=== PATIENT | female | born 1985 | race American Indian/Alaskan Native ===

== ENCOUNTER 2018-11-17 07:37 | Emergency (ER) | payer OTHER ==
[2018-11-17] MEDS ORDERED: ZOFRAN IV ONE (07:47)
[2018-11-17] MEDS ORDERED: NACL 0.9% 1000 ML 1,000 ML IV ONE (07:47)
[2018-11-17] MEDS ORDERED: TORADOL IV ONE (07:47)
[2018-11-17] MEDS ORDERED: MORPHINE IV ONE (07:47)
[2018-11-17] MEDS ORDERED: TORADOL ONE (07:49)
[2018-11-17] MEDS ORDERED: MORPHINE ONE (07:50)
[2018-11-17] MEDS ORDERED: ZOFRAN ONE (07:50)
--- NOTE | 2018-11-17 07:59 | Emergency Department Report ---
ED Abdominal Pain HPI - General Chief Complaint: Abdominal Pain Stated Complaint: FALL Time Seen by Provider: 11/17/18 07:46 Source: patient Mode of arrival: Stretcher Limitations: No Limitations - History of Present Illness Initial Comments: Mrs. Blue is a 33-year-old female with history of gallstones who presents with severe right upper quadrant pain. Pain is currently 11 out of 10. Became returned on yesterday. She was diagnosed with gallstones 2 weeks ago. Today she has severe pain. SHe fell to floor. On the way to the ground she struck her face on a porcelain sink. No LOC. 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 She was brought emergently from ultrasound to our emergency department for evaluation. 11 out of 10 dull pain without radiation. She felt warm to touch according to her colleagues. Several years ago, she was given a recommendation by physician to have cholecystectomy. She was afraid of the surgery. A close relative as a complication of cholecystectomy. She was very afraid of possible complication. She ate pizza yesterday. She has two superficial facial abrasions. Tetanus is UTD. MD Complaint: abdominal pain -: Gradual, days(s) (1) Location: RUQ Radiation: none Migration to: no migration Severity: severe Severity scale (0 -10): 10 Quality: aching Consistency: constant Improves With: nothing Worsens With: other (palpation) Associated Symptoms: nausea - Related Data Previous Rx's Medication Instructions Recorded Last Taken Type Promethazine [Phenergan] 25 mg PO Q6HR PRN #10 tab 11/17/18 Unknown Rx oxyCODONE /ACETAMINOPHEN [Percocet 1 tab PO Q6HR PRN #20 tablet 11/17/18 Unknown Rx 5/325] Allergies Allergy/AdvReac Type Severity Reaction Status Date / Time pseudoephedrine Allergy Unknown [facility] Systems ROS: Stated complaint: FALL Other details as noted in HPI Comment: All other systems reviewed and negative Constitutional: denies: fever Gastrointestinal: abdominal pain, nausea ED Past Medical Hx - Past Medical History Previous Medical History?: Yes Additional medical history: Gallstones - Surgical History Past Surgical History?: Yes Additional Surgical History: C section x 3 - Family History Family history: hypertension - Social History Smoking Status: Never Smoker Substance Use Type: None - Medications Home Medications: Home Medications Medication Instructions Recorded Confirmed Last Taken Type Promethazine [Phenergan] 25 mg PO Q6HR PRN #10 tab 11/17/18 Unknown Rx oxyCODONE /ACETAMINOPHEN [Percocet 1 tab PO Q6HR PRN #20 tablet 11/17/18 Unknown Rx 5/325] ED Physical Exam - General Limitations: No Limitations General appearance: alert, in no apparent distress, other (appears in pain but nontoxic) - Head Head exam: Present: normocephalic, other (no hematoma or contusion, 2 superficial lacerations at right cheek and right temporal region 2 cm in length) - Eye Eye exam: Present: normal appearance - ENT ENT exam: Present: mucous membranes moist - Neck Neck exam: Present: normal inspection, full ROM. Absent: tenderness, meningismus - Respiratory Respiratory exam: Present: normal lung sounds bilaterally. Absent: respiratory distress, wheezes, rales, rhonchi - Cardiovascular Cardiovascular Exam: Present: normal rhythm, tachycardia, normal heart sounds. Absent: systolic murmur, diastolic murmur, rubs, gallop - GI/Abdominal GI/Abdominal exam: Present: soft, normal bowel sounds. Absent: distended, tenderness, guarding, rebound - Extremities Exam Extremities exam: Present: normal inspection - Back Exam Back exam: Present: normal inspection - Neurological Exam Neurological exam: Present: alert, oriented X3 - Psychiatric Psychiatric exam: Present: normal affect, normal mood - Skin Skin exam: Present: warm, dry, intact, normal color. Absent: rash ED Course Vital Signs 11/17/18 11/17/18 07:49 09:06 Temperature 98.7 F Pulse Rate 125 H 98 H Respiratory 16 16 Rate Blood Pressure 156/82 Blood Pressure 116/76 [Right] O2 Sat by Pulse 100 98 Oximetry - Laceration /Wound Repair Right Cheek Wound Location: face Wound Length (cm): 2 Wound's Depth, Shape: superficial Wound Explored: clean Betadine Prep?: No Wound Debrided: minimal Wound Repaired With: Dermabond Layer Closure?: No Sterile Dressing Applied?: No Progress: 2 layers Dermabond applied to right cheek laceration, laceration at temporal region and did not need repair ED Medical Decision Making - Lab Data Result diagrams: 11/17/18 07:58 07/02/19 07:58 - Medical Decision Making Ms. Blue presents with RUQ pain and vasovagal episode. Biliary colic without acute cholecystitis. Normal WBC. no signs of cholecystitis. Tachycardia resolved after receiving fluids and pain medication in the ED. No fever to indicate sepsis SIRS. Ms. Blue decided to be discharged for outpatient referral to surgeon. She was offered hospitalization. Prescribed Percocet and promethazine. 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 Critical care attestation.: If time is entered above; I have spent that time in minutes in the direct care of this critically ill patient, excluding procedure time. ED Disposition Clinical Impression: Biliary colic, Acute abdominal pain Disposition: - TO HOME OR SELFCARE Is pt being admited?: No Does the pt Need Aspirin: No Condition: Stable Instructions: Biliary Colic (ED), Cholelithiasis (ED) Prescriptions: oxyCODONE /ACETAMINOPHEN [Percocet 5/325] 1 tab PO Q6HR PRN #20 tablet PRN Reason: Pain Promethazine [Phenergan] 25 mg PO Q6HR PRN #10 tab PRN Reason: Nausea Referrals: LEIA HANSON MD [Staff Physician] - [facility]
[2018-11-17 08:05] LABS: Basophils # (Auto) 0.1 K/mm3 (0.0-0.1); Basophils % (Auto) 0.8 % (0.0-1.8); Eosinophils % (Auto) 0.4 % (0.0-4.3); Hematocrit 28.2 % (30.3-42.9); Hemoglobin 8.7 gm/dl (10.1-14.3); Lymphocytes # (Auto) 3.3 K/mm3 (1.2-5.4); Lymphocytes % (Auto) 30.6 % (13.4-35.0); Mean Corpuscular HGB Conc 31 % (30-34); Monocytes # (Auto) 0.6 K/mm3 (0.0-0.8); Monocytes % (Auto) 5.7 % (0.0-7.3); Platelet Count 729 K/mm3 (140-440); Red Blood Count 4.26 M/mm3 (3.65-5.03); Red Cell Distribution Width 18.8 % (13.2-15.2)
[2018-11-17 08:13] LABS: Mean Corpuscular Volume 66 fl (79-97)
[2018-11-17 08:19] LABS: Albumin 4.7 g/dL (3.9-5); BUN/Creatinine Ratio 11; Blood Urea Nitrogen 10 mg/dL (7-17); Calcium 9.6 mg/dL (8.4-10.2); Hemolysis Index 8
[2018-11-17 08:21] LABS: Alanine Aminotransferase < 5 units/L (7-56); Bilirubin,Direct < 0.2 mg/dL (0-0.2)
[2018-11-17] MEDS ORDERED: DILAUDID IV ONE (08:56)
--- NOTE | 2018-11-17 09:44 | Ultrasound Report ---
LIMITED RUQ ABDOMINAL ULTRASOUND INDICATION: Right upper quadrant pain. COMPARISON: No relevant prior imaging study available. FINDINGS: Pancreas: Visualized portions show no significant abnormality. Abdominal Aorta: No significant abnormality. IVC: No significant abnormality. Liver: No significant abnormality. Normal hepatopedal blood flow in the main portal vein. Gallbladder: There is a calcified gallstone in the gallbladder neck. The gallbladder is not significa ntly distended. There is no bladder wall thickening or pericholecystic fluid. Sonographic Romero sign was reported as positive.. Bile ducts: No significant abnormality. Common bile duct measures 6 mm. Right kidney: No significant abnormality visualized.. Free fluid: None. Additional Findings: None. IMPRESSION: 1. Cholelithiasis without significant gallbladder distention or gallbladder wall thickening. The sono graphic Romero sign was reported to be positive. The absence of significant gallbladder distention wi th suggest that acute cholecystitis is unlikely but given the positive sonographic Romero sign, clini lauren evaluation for acute cholecystitis is recommended. Signer Name: Suresh Merlos MD Signed: 11/17/2018 8:40 AM Workstation Name: [id number]
[2018-11-17] MEDS ORDERED: PERCOCET 5/325 PO ONE (10:15)
[2018-11-17 10:25] VITALS: BP 151/95
== END 2018-11-17 11:25 | disposition home or self-care (01) ==
LOC: ED 07:37
DX: K80.50 Calculus of bile duct without cholangitis or cholecystitis without obstruction (principal); R55 Syncope and collapse; S01.411A Laceration without foreign body of right cheek and temporomandibular area, initial encounter; Z90.49 Acquired absence of other specified parts of digestive tract; Z88.8 Allergy status to other drugs, medicaments and biological substances; W18.39XA Other fall on same level, initial encounter; Y93.89 Activity, other specified; Y92.89 Other specified places as the place of occurrence of the external cause; Y99.8 Other external cause status
CPT/HCPCS: 12011; 36415; 76705; 80048; 80076; 83690; 84703; 85025; 87040; 96361; 96374; 96375; 99284; J1170; J1885; J2270; J2405; J7030